=== PATIENT | male | born 1970 | race Caucasian/White ===

== ENCOUNTER 2019-08-30 09:51 | Emergency (ER) | payer BC ==
[~2019-08-30] VITALS: Ht 185.4 cm; Wt 106.0 kg
[~2019-08-30 09:51] MED LIST: ALBU18HF2 INH; BUDE180A INH; CHOL100046 PO; FLUT16SP2 BOTHNARES; SILD50TA PO
[2019-08-30] MEDS ORDERED: pantoprazole 40mg Tablet.DR PO ONE (10:40)
[2019-08-30] MEDS ORDERED: LIDOcaine Viscous 15ml cup MM ONE (10:40)
[2019-08-30] MEDS ORDERED: mag hydrox/Alum hydrox/simeth 30ml oral suspension PO ONE (10:40)
[2019-08-30] MEDS ORDERED: normal saline 1000ML IV soln IVB ONE (10:40)
[2019-08-30] MEDS: diatr meglu/diatrizoate 30ml oral sol.-(3 dose) bottle PO SCH ×3 (10:49→12:46)
--- NOTE | 2019-08-30 11:07 | NUR ---
Patient ambulated to room with steady gait. patient don gown, reports abd pain 2/10 right now.
--- NOTE | 2019-08-30 11:08 | NUR ---
two unsuccessful IV attempts, another RN attempting. Patient tolerating well.
--- NOTE | 2019-08-30 11:34 | NUR ---
DELLA Tucker placed IV.
--- NOTE | 2019-08-30 12:22 | NUR ---
Patient ambulated to restroom with steady gait. Urine sample collected and sent to lab.
[2019-08-30] MEDS ORDERED: iohexol 300mg/ml 100ml inj. ONE (12:40)
--- NOTE | 2019-08-30 12:46 | NUR ---
Off to CT
--- NOTE | 2019-08-30 13:00 | NUR ---
Patient back from CT and resting comfortable, no needs at this time.
[2019-08-30] MEDS ORDERED: ciprofloxacin 250mg tablet PO ONE (13:55)
[2019-08-30] MEDS ORDERED: metroNIDAZOLE 500mg tablet PO ONE (13:55)
[2019-08-30] MEDS ORDERED: CIPR250S2 PO (13:57)
[2019-08-30] MEDS ORDERED: METR-159 PO (13:57)
[2019-08-30 14:15] VITALS: BP 153/111
== END 2019-08-30 14:22 | disposition home or self-care (01) ==
LOC: ER 09:52
DX: K57.92 Diverticulitis of intestine, part unspecified, without perforation or abscess without bleeding (principal); J45.909 Unspecified asthma, uncomplicated; Z79.2 Long term (current) use of antibiotics; Z79.899 Other long term (current) drug therapy
CPT/HCPCS: 74177; 99285; J7030; Q9963; Q9967; J3490